=== PATIENT | female | born 2000 | race Caucasian/White ===

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

== ENCOUNTER 2020-12-28 11:33 | Emergency (ER) | payer BC, OTHER ==
[2020-12-28 13:30] VITALS: BP 131/74; PULSE 84
--- NOTE | 2020-12-28 13:38 | EDM.PDOC ---
ED HPI GENERAL MEDICAL PROBLEM - General Chief Complaint: Cardiovascular Problem Stated Complaint: HIGH BLOOD PRESSURE FEELING WEAK Time Seen by Provider: 12/28/20 13:37 Source of Information: Reports: Patient, RN, RN Notes Reviewed History Limitations: Reports: No Limitations - History of Present Illness INITIAL COMMENTS - FREE TEXT/NARRATIVE: Patient is a 20 y/o female who presents to the ED via personal vehicle with mother for complaints of dizziness and high blood pressure. The patient states she was feeling weak, dizzy, and shaky while at work this morning. She left w ork early at went home; she checked her blood pressure per her mother's request with a reading of 204/125 via home, wrist BP cuff at approximately 1130. Recheck with same BP machine was 180s SBP. The patient denies recent illness, fever, shaking chills, chest pain, palpitations, shortness of breath, nausea, vomiting, or diarrhea. She does note she has been on a new diet that is fairly low-carb and low-fat; she is unsure of her total caloric intake. The patient reports she experienced a similar episode of dizziness/shakiness during a new exercise routine yesterday. She reports she has experienced similar episodes in the past for which she followed with Dr. Devi; scans were clear and she was diagnosed with anxiety. She notes she does feel anxious at all times but her anxiety is currently at her baseline. She is currently taking Lexapro 10mg, Cymbalta 60mg daily and Trazodone 50mg and Atarax 25mg HS; these are not new medications for her. She denies tobacco or alcohol use; she does attest to weekly THC use. - Related Data Allergies Allergy/AdvReac Type Severity Reaction Status Date / Time amoxicillin [From Augmentin] Allergy Hives Verified 12/28/20 13:31 citalopram [From Celexa] Allergy Hallucinati Verified 12/28/20 13:31 ons clavulanic acid Allergy Hives Verified 12/28/20 13:31 [From Augmentin] sulfamethoxazole Allergy Hives Verified 12/28/20 13:31 [From Bactrim] trimethoprim [From Bactrim] Allergy Hives Verified 12/28/20 13:31 Home Meds: Home Meds Escitalopram [Lexapro] 1 tab PO DAILY 05/21/17 [History] DULoxetine [Cymbalta] 60 mg PO ASDIRECTED 12/28/20 [History] Liothyronine 50 mcg PO ASDIRECTED 12/28/20 [History] hydrOXYzine HCL [Atarax] 25 mg PO BID 12/28/20 [History] traZODone HCl [Trazodone HCl] 50 mg PO ASDIRECTED 12/28/20 [History] Past Medical History HEENT History: Reports: Otitis Media Respiratory History: Reports: Bronchitis, Recurrent Neurological History: Reports: Migraines Psychiatric History: Reports: Anxiety, Depression Social & Family History - Family History Family Medical History: No Pertinent Family History - Caffeine Use Caffeine Use: Reports: Coffee, Soda - Living Situation & Occupation Living situation: Reports: with Family Occupation: Student ED ROS GENERAL - Review of Systems Review Of Systems: Comprehensive ROS is negative, except as noted in HPI. ED EXAM, GENERAL - Physical Exam Exam: See Below Exam Limited By: No Limitations General Appearance: Alert, No Apparent Distress, Anxious Eye Exam: Bilateral Eye: EOMI, Normal Inspection, PERRL (3mm) Ears: Normal External Exam, Normal Canal, Hearing Grossly Normal, Normal TMs Ear Exam: Bilateral Ear: Auricle Normal, Canal Normal, TM normal Nose: Normal Inspection, Normal Mucosa, No Blood Throat/Mouth: Normal Inspection, Normal Voice, No Airway Compromise Head: Atraumatic, Normocephalic Neck: Normal Inspection, Supple, Non-Tender, Full Range of Motion Respiratory/Chest: No Respiratory Distress, Lungs Clear, Normal Breath Sounds, No Accessory Muscle Use, Chest Non-Tender Cardiovascular: Normal Peripheral Pulses, Regular Rate, Rhythm, No Edema, No Gallop, No JVD, No Murmur, No Rub Peripheral Pulses: 2+: Radial (L), Radial (R) GI/Abdominal: Normal Bowel Sounds, Soft, Non-Tender, No Organomegaly, No Distention, No Abnormal Bruit, No Mass, Pelvis Stable (Female) Exam: Deferred Rectal (Female) Exam: Deferred Back Exam: Normal Inspection, Full Range of Motion. No: CVA Tenderness (L), CVA Tenderness (R) Extremities: Normal Inspection, Normal Range of Motion, Non-Tender, Normal Capillary Refill, No Pedal Edema Neurological: Alert, Oriented, CN II-XII Intact, Normal Cognition, Normal Gait, Normal Reflexes, No Motor/Sensory Deficits Psychiatric: Anxious Skin Exam: Warm, Intact, Normal Color, No Rash, Diaphoretic, Mottled, Pallor, Petechiae. No: Ecchymosis, Erythema, Jaundice #1 Interpretation EKG Date: 12/28/20 Time: 13:12 Rhythm: NSR Rate (Beats/Min): 88 [place]: Normal P-Wave: Present QRS: Normal ST-T: Normal QT: Normal DC/PQ Interval: 0.13 Comparison: NA - No Prior EKG EKG Interpretation Comments: NSR; No evidence of acute myocardial ischemia Course - Vital Signs Last Recorded V/S: Last Vital Signs Temp 98.7 F 12/28/20 12:58 Pulse 84 12/28/20 12:58 Resp 14 12/28/20 12:58 BP 131/74 12/28/20 12:58 Pulse Ox - Orders/Labs/Meds Labs: Laboratory Tests 12/28/20 12/28/20 12/28/20 Range/Units 13:07 13:27 13:27 WBC 6.4 (5.0-10.0) 10^3/uL RBC 4.86 (4.2-5.4) 10^6/uL Hgb 14.0 (12.0-16.0) g/dL Hct 40.1 (37.0-47.0) % MCV 82.5 (80-100) fL MCH 28.8 (27.0-34.0) pg MCHC 34.9 (33.0-35.0) g/dL Plt Count 205 (150-450) 10^3/uL Neut % (Auto) 52.4 (42.2-75.2) % Lymph % (Auto) 39.7 (20.5-50.1) % [place] % (Auto) 6.6 (2-8) % Eos % (Auto) 1.1 (1.0-3.0) % Baso % (Auto) 0.2 (0.0-1.0) % Sodium 139 (136-145) mmol/L Potassium 3.4 L (3.5-5.1) mmol/L Chloride 102 (98-107) mmol/L Carbon Dioxide 22 (21-32) mmol/L Anion Gap 18.4 H (7-13) mEq/L BUN 14 (7-18) mg/dL Creatinine 0.81 (0.55-1.02) mg/dL Est Cr Clr Drug Dosing 94.87 mL/min Estimated GFR (MDRD) > 60 BUN/Creatinine Ratio 17.3 (No establ ref range) Glucose 72 (70-99) mg/dL POC Glucose 64 L (70-99) mg/dL Lactic Acid (0.4-2.0) mmol/L Calcium 8.9 (8.5-10.1) mg/dL Magnesium 2.2 (1.8-2.4) mg/dL Total Bilirubin 0.6 (0.2-1.0) mg/dL AST 24 (15-37) U/L ALT 44 (14-59) U/L Alkaline Phosphatase 62 (46-116) U/L Troponin I < 0.017 (0.000-0.056) ng/mL C-Reactive Protein 0.3 (0.0-0.9) mg/dL Total Protein 7.5 (6.4-8.2) g/dL Albumin 4.1 (3.4-5.0) g/dL Globulin 3.4 Albumin/Globulin Ratio 1.2 HCG, Qual Negative Urine Color (YELLOW) Urine Appearance (CLEAR) Urine pH (5.0-9.0) Ur Specific [place] (1.005-1.030) Urine Protein (NEGATIVE) Urine Glucose (UA) (NEGATIVE) Urine Ketones (NEGATIVE) Urine Occult Blood (NEGATIVE) Urine Nitrite (NEGATIVE) Urine Bilirubin (NEGATIVE) Urine Urobilinogen (0.2-1.0) mg/dL Ur Leukocyte Esterase (NEGATIVE) Urine RBC /HPF Urine WBC (0-5/HPF) /HPF Ur Epithelial Cells (NOT SEEN) /HPF Urine Bacteria (0-FEW/HPF) /HPF Urine Opiates Screen (NEGATIVE) Ur Oxycodone Screen (NEGATIVE) Urine Methadone Screen (NEGATIVE) Ur Barbiturates Screen (NEGATIVE) U Tricyclic Antidepress (NEGATIVE) Ur Phencyclidine Scrn (NEGATIVE) Ur Amphetamine Screen (NEGATIVE) U Methamphetamines Scrn (NEGATIVE) Urine MDMA Screen (NEGATIVE) U Benzodiazepines Scrn (NEGATIVE) Urine Cocaine Screen (NEGATIVE) U Marijuana (THC) Screen (NEGATIVE) Ethyl Alcohol 3 (0) mg/dL 12/28/20 12/28/20 12/28/20 Range/Units 13:27 13:57 13:57 WBC (5.0-10.0) 10^3/uL RBC (4.2-5.4) 10^6/uL Hgb (12.0-16.0) g/dL Hct (37.0-47.0) % MCV (80-100) fL MCH (27.0-34.0) pg MCHC (33.0-35.0) g/dL Plt Count (150-450) 10^3/uL Neut % (Auto) (42.2-75.2) % Lymph % (Auto) (20.5-50.1) % [place] % (Auto) (2-8) % Eos % (Auto) (1.0-3.0) % Baso % (Auto) (0.0-1.0) % Sodium (136-145) mmol/L Potassium (3.5-5.1) mmol/L Chloride (98-107) mmol/L Carbon Dioxide (21-32) mmol/L Anion Gap (7-13) mEq/L BUN (7-18) mg/dL Creatinine (0.55-1.02) mg/dL Est Cr Clr Drug Dosing mL/min Estimated GFR (MDRD) BUN/Creatinine Ratio (No establ ref range) Glucose (70-99) mg/dL POC Glucose (70-99) mg/dL Lactic Acid 1.2 (0.4-2.0) mmol/L Calcium (8.5-10.1) mg/dL Magnesium (1.8-2.4) mg/dL Total Bilirubin (0.2-1.0) mg/dL AST (15-37) U/L ALT (14-59) U/L Alkaline Phosphatase (46-116) U/L Troponin I (0.000-0.056) ng/mL C-Reactive Protein (0.0-0.9) mg/dL Total Protein (6.4-8.2) g/dL Albumin (3.4-5.0) g/dL Globulin Albumin/Globulin Ratio HCG, Qual Urine Color Yellow (YELLOW) Urine Appearance Clear (CLEAR) Urine pH 5.5 (5.0-9.0) Ur Specific [place] 1.015 (1.005-1.030) Urine Protein Trace H (NEGATIVE) Urine Glucose (UA) Negative (NEGATIVE) Urine Ketones 40 H (NEGATIVE) Urine Occult Blood Moderate H (NEGATIVE) Urine Nitrite Negative (NEGATIVE) Urine Bilirubin Negative (NEGATIVE) Urine Urobilinogen 0.2 (0.2-1.0) mg/dL Ur Leukocyte Esterase Negative (NEGATIVE) Urine RBC 0-5 /HPF Urine WBC 0-5 (0-5/HPF) /HPF Ur Epithelial Cells Rare (NOT SEEN) /HPF Urine Bacteria Few (0-FEW/HPF) /HPF Urine Opiates Screen Negative (NEGATIVE) Ur Oxycodone Screen Negative (NEGATIVE) Urine Methadone Screen Negative (NEGATIVE) Ur Barbiturates Screen Negative (NEGATIVE) U Tricyclic Antidepress Negative (NEGATIVE) Ur Phencyclidine Scrn Negative (NEGATIVE) Ur Amphetamine Screen Negative (NEGATIVE) U Methamphetamines Scrn Negative (NEGATIVE) Urine MDMA Screen Negative (NEGATIVE) U Benzodiazepines Scrn Negative (NEGATIVE) Urine Cocaine Screen Negative (NEGATIVE) U Marijuana (THC) Screen Positive H (NEGATIVE) Ethyl Alcohol (0) mg/dL 12/28/20 Range/Units 14:26 WBC (5.0-10.0) 10^3/uL RBC (4.2-5.4) 10^6/uL Hgb (12.0-16.0) g/dL Hct (37.0-47.0) % MCV (80-100) fL MCH (27.0-34.0) pg MCHC (33.0-35.0) g/dL Plt Count (150-450) 10^3/uL Neut % (Auto) (42.2-75.2) % Lymph % (Auto) (20.5-50.1) % [place] % (Auto) (2-8) % Eos % (Auto) (1.0-3.0) % Baso % (Auto) (0.0-1.0) % Sodium (136-145) mmol/L Potassium (3.5-5.1) mmol/L Chloride (98-107) mmol/L Carbon Dioxide (21-32) mmol/L Anion Gap (7-13) mEq/L BUN (7-18) mg/dL Creatinine (0.55-1.02) mg/dL Est Cr Clr Drug Dosing mL/min Estimated GFR (MDRD) BUN/Creatinine Ratio (No establ ref range) Glucose (70-99) mg/dL POC Glucose 140 H (70-99) mg/dL Lactic Acid (0.4-2.0) mmol/L Calcium (8.5-10.1) mg/dL Magnesium (1.8-2.4) mg/dL Total Bilirubin (0.2-1.0) mg/dL AST (15-37) U/L ALT (14-59) U/L Alkaline Phosphatase (46-116) U/L Troponin I (0.000-0.056) ng/mL C-Reactive Protein (0.0-0.9) mg/dL Total Protein (6.4-8.2) g/dL Albumin (3.4-5.0) g/dL Globulin Albumin/Globulin Ratio HCG, Qual Urine Color (YELLOW) Urine Appearance (CLEAR) Urine pH (5.0-9.0) Ur Specific [place] (1.005-1.030) Urine Protein (NEGATIVE) Urine Glucose (UA) (NEGATIVE) Urine Ketones (NEGATIVE) Urine Occult Blood (NEGATIVE) Urine Nitrite (NEGATIVE) Urine Bilirubin (NEGATIVE) Urine Urobilinogen (0.2-1.0) mg/dL Ur Leukocyte Esterase (NEGATIVE) Urine RBC /HPF Urine WBC (0-5/HPF) /HPF Ur Epithelial Cells (NOT SEEN) /HPF Urine Bacteria (0-FEW/HPF) /HPF Urine Opiates Screen (NEGATIVE) Ur Oxycodone Screen (NEGATIVE) Urine Methadone Screen (NEGATIVE) Ur Barbiturates Screen (NEGATIVE) U Tricyclic Antidepress (NEGATIVE) Ur Phencyclidine Scrn (NEGATIVE) Ur Amphetamine Screen (NEGATIVE) U Methamphetamines Scrn (NEGATIVE) Urine MDMA Screen (NEGATIVE) U Benzodiazepines Scrn (NEGATIVE) Urine Cocaine Screen (NEGATIVE) U Marijuana (THC) Screen (NEGATIVE) Ethyl Alcohol (0) mg/dL - Re-Assessments/Exams Free Text/Narrative Re-Assessment/Exam: 12/28/20 Blood pressure 130s/70 upon triage. Blood sugar noted to be only 64. The patient states she had a shake and protein bar this morning for breakfast, per her diet; she has not had lunch. Soup and sandwich provided for patient. Patient verbalized resolution of dizziness/tremor following meal. She does still attest to anxiety, but notes it is not greater than her baseline. Blood pressures remain between 120-140, systolic. Recheck of blood sugar 140. Mother expressed concern regarding her blood sugar being too high following a meal; wr iter discussed proper post-prandial blood sugar as well as the importance of a balanced diet with appropriate caloric intake, especially in the presence of strenuous exercise. CMP and CBC fairly normal; slight hypokalemia noted. Findings of examination and blood work reviewed with patient and mother. Patient instructed to follow up in clinic tomorrow for blood pressure recheck as well as to schedule appointment with PCP by the end of the week for follow up. Patient verbalized understanding and agreement with the plan of care. Departure - Departure Time of Disposition: 14:35 Disposition: Home, Self-Care 01 Condition: Good Clinical Impression: Hypoglycemia, Pre-syncope, Transient hypertension Instructions: Hypoglycemia, [id number] Referrals: Esperanza Salcido NP [Primary Care Provider] - Forms: ED Department Discharge Additional Instructions: 1.) Blood pressure recheck tomorrow morning; present to the clinic. 2.) Follow up with primary care provider regarding today's visit, including hypoglycemia and hypertension. 3.) Drink plenty of water to stay hydrated. 4.) Eat a balanced diet, ensuring that you are consuming at least 1800 calories and fat/carbohydrates. Sepsis Event Note (ED) - Evaluation Sepsis Screening Result: No Definite Risk
[2020-12-28 13:56] LABS: ANION GAP 18.4 mEq/L (7-13); CHLORIDE,CL 102 mmol/L (98-107); SODIUM,NA 139 mmol/L (136-145)
== END 2020-12-28 14:43 | disposition home or self-care (01) ==
LOC: DL.ED 11:33
DX: E16.2 Hypoglycemia, unspecified (principal); R03.0 Elevated blood-pressure reading, without diagnosis of hypertension; Z88.0 Allergy status to penicillin; Z79.899 Other long term (current) drug therapy; Z88.8 Allergy status to other drugs, medicaments and biological substances; Z88.1 Allergy status to other antibiotic agents; Z88.2 Allergy status to sulfonamides
CPT/HCPCS: 36415; 80053; 80305-QW; 80307; 81001; 82947; 83605; 83735; 84484; 84703; 85025; 86140; 93005; 93010; 99284; 99284-25

== ENCOUNTER 2021-12-12 18:48 | Emergency (ER) | payer BC, OTHER ==
[2021-12-12] MEDS ORDERED: Ondansetron 4 MG Tab.DIS PO ONE (18:49)
[2021-12-12] MEDS ORDERED: Ondansetron 4 MG/2 ML SDV IVPUSH ONE (19:40)
[2021-12-12] MEDS ORDERED: Sodium Chloride 0.9% 1,000 ML IV ONE ×2 (19:40→20:51)
[2021-12-12 20:11] VITALS: BP 133/94; PULSE 86
[2021-12-12 20:21] LABS: ANION GAP 16.3 mEq/L (7-13); CHLORIDE,CL 105 mmol/L (98-107); SODIUM,NA 141 mmol/L (136-145)
[2021-12-12 20:40] LABS: CORONAVIRUS COVID-19 NAA NEGATIVE (NEGATIVE)
[2021-12-12] MEDS ORDERED: Potassium Chloride 10 MEQ in Premix Bag 1 BAG IV ONE (20:56)
[2021-12-12] MEDS ORDERED: Ondansetron 4 MG Tab.DIS ONE (22:06)
== END 2021-12-12 22:15 | disposition home or self-care (01) ==
LOC: DL.ED 18:48
DX: K52.9 Noninfective gastroenteritis and colitis, unspecified (principal); K21.9 Gastro-esophageal reflux disease without esophagitis; Z79.899 Other long term (current) drug therapy; Z20.822 Contact with and (suspected) exposure to COVID-19; Z88.8 Allergy status to other drugs, medicaments and biological substances; Z88.0 Allergy status to penicillin; Z88.2 Allergy status to sulfonamides
CPT/HCPCS: 0240U; 36415; 80053; 82150; 83605; 83690; 84703; 85025; 96365; 96375; 99284; A9270; J2405; J3480; J7030

== ENCOUNTER 2023-02-21 20:31 | Emergency (ER) | payer BC, OTHER ==
[2023-02-21] MEDS ORDERED: Sodium Chloride 0.9% 10 ML Syringe FLUSH PRN (20:38)
[2023-02-21 20:49] VITALS: BP 121/76; PULSE 114
[2023-02-21 20:52] LABS: BASOPHILS PERCENT AUTO 0.1 % (0.0-1.0); EOSINOPHILS PERCENT AUTO 0.2 % (1.0-3.0); HEMATOCRIT 38.6 % (37.0-47.0); HEMOGLOBIN 13.3 g/dL (12.0-16.0); LYMPHOCYTES PERCENT AUTO 14.6 % (20.5-50.1); MEAN CORPUSCULAR HEMOGLOBIN 29.6 pg (27.0-34.0); MEAN CORPUSCULAR HGB CONC 34.5 g/dL (33.0-35.0); MEAN CORPUSCULAR VOLUME 85.8 fL (80-100); NEUTROPHILS PERCENT AUTO 82.1 % (42.2-75.2); PLATELET COUNT,PLT 191 10^3/uL (150-450); WHITE BLOOD CELL COUNT,WBC 9.3 10^3/uL (5.0-10.0)
[2023-02-21] MEDS: Sodium Chloride 0.9% 1,000 ML IV ONE (21:01)
[2023-02-21 21:08] LABS: A/G RATIO 1.2; ALANINE AMINOTRANSFERASE,ALT 22 U/L (14-59); ALBUMIN 4.2 g/dL (3.4-5.0); ALKALINE PHOSPHATASE 58 U/L (46-116); ANION GAP 17.7 mEq/L (7-13); ASPARTATE AMNIOTRANSFERASE,AST 25 U/L (15-37); BILIRUBIN TOTAL 0.5 mg/dL (0.2-1.0); BLOOD UREA NITROGEN,BUN 11 mg/dL (7-18); BUN/CREATININE RATIO 11.3 (No establ ref range); CARBON DIOXIDE,CO2 21 mmol/L (21-32); CHLORIDE,CL 102 mmol/L (98-107); CREATININE 0.97 mg/dL (0.55-1.02); EST CRCL DRUG DOSING (CG) 77.89 mL/min; GLUCOSE RANDOM 104 mg/dL (70-99); POTASSIUM,K 3.7 mmol/L (3.5-5.1); PROTEIN TOTAL,TP 7.8 g/dL (6.4-8.2); SODIUM,NA 137 mmol/L (136-145)
[2023-02-21 21:09] LABS: C-REACTIVE PROTEIN < 0.2 mg/dL (0.0-0.9); ESTIMATED GFR 84 mL/min (>=60); ETHANOL BLOOD MEDICAL < 3 mg/dL (0)
[2023-02-21 21:15] LABS: LACTIC ACID 4.8 mmol/L (0.4-2.0)
[2023-02-21 21:51] LABS: APPEARANCE,URINE CLEAR (CLEAR); BILIRUBIN,URINE NEGATIVE (NEGATIVE); COLOR,URINE YELLOW (YELLOW); GLUCOSE,URINE NEGATIVE (NEGATIVE); KETONES,URINE TRACE (NEGATIVE); LEUKOCYTE ESTERASE,URINE NEGATIVE (NEGATIVE); NITRITE,URINE NEGATIVE (NEGATIVE); OCCULT BLOOD,URINE TRACE-INTACT (NEGATIVE); PH,URINE 5.5 (5.0-9.0); PROTEIN,URINE 100 (NEGATIVE); UROBILINOGEN,URINE 0.2 mg/dL (0.2-1.0)
[2023-02-21 21:55] LABS: AMPHETAMINES,URINE NEGATIVE (NEGATIVE); BARBITURATES,URINE NEGATIVE (NEGATIVE); BENZODIAZEPINE,URINE NEGATIVE (NEGATIVE); MDMA (ECSTASY), URINE NEGATIVE (NEGATIVE); METHADONE,URINE NEGATIVE (NEGATIVE); METHAMPHETAMINES,URINE NEGATIVE (NEGATIVE); OPIATES,URINE NEGATIVE (NEGATIVE); OXYCODONE,URINE NEGATIVE (NEGATIVE); PHENCYCLIDINE,URINE NEGATIVE (NEGATIVE); TCA,URINE NEGATIVE (NEGATIVE)
[2023-02-21] MEDS: levETIRAcetam in NaCl (iso-os) 1,500 MG in Premix Bag 1 BAG IV ONE ×2 (21:58)
[2023-02-21 22:01] LABS: BACTERIA,URINE FEW /HPF (0-FEW/HPF); EPITHELIAL CELLS,URINE FEW /HPF (NOT SEEN); MUCUS,URINE MODERATE /LPF (NOT SEEN)
== END 2023-02-21 22:30 | disposition home or self-care (01) ==
LOC: DL.ED 20:31
DX: R56.9 Unspecified convulsions (principal); S00.532A Contusion of oral cavity, initial encounter; S00.83XA Contusion of other part of head, initial encounter; Z88.0 Allergy status to penicillin; Z88.1 Allergy status to other antibiotic agents
CPT/HCPCS: 36415; 70450; 80053; 80305; 80307; 81001; 81025; 83605; 83735; 85025; 86140; 96365; 99285; J1953; J7030

== ENCOUNTER 2023-03-03 02:35 | Emergency (ER) | payer OTHER ==
[2023-03-03] MEDS ORDERED: Sodium Chloride 0.9% 10 ML Syringe FLUSH PRN (03:05)
[2023-03-03 03:14] VITALS: BP 156/78; PULSE 102
[2023-03-03] MEDS ORDERED: levETIRAcetam in NaCl (iso-os) 1,000 MG in Premix Bag 1 BAG IV ONE ×2 (03:14)
[2023-03-03 03:16] LABS: BASOPHILS PERCENT AUTO 0.2 % (0.0-1.0); EOSINOPHILS PERCENT AUTO 0.7 % (1.0-3.0); HEMATOCRIT 39.5 % (37.0-47.0); HEMOGLOBIN 13.8 g/dL (12.0-16.0); LYMPHOCYTES PERCENT AUTO 34.4 % (20.5-50.1); MEAN CORPUSCULAR HEMOGLOBIN 29.9 pg (27.0-34.0); MEAN CORPUSCULAR HGB CONC 34.9 g/dL (33.0-35.0); MEAN CORPUSCULAR VOLUME 85.5 fL (80-100); MONOCYTES PERCENT AUTO 9.9 % (2-8); NEUTROPHILS PERCENT AUTO 54.8 % (42.2-75.2); PLATELET COUNT,PLT 339 10^3/uL (150-450); RED BLOOD CELL COUNT 4.62 10^6/uL (4.2-5.4)
[2023-03-03 04:05] LABS: A/G RATIO 1.2; ALBUMIN 4.1 g/dL (3.4-5.0); ANION GAP 15.8 mEq/L (7-13); BILIRUBIN TOTAL 0.6 mg/dL (0.2-1.0); BUN/CREATININE RATIO 10.8 (No establ ref range); CALCIUM 9.3 mg/dL (8.5-10.1); CREATININE 1.02 mg/dL (0.55-1.02); EST CRCL DRUG DOSING (CG) 73.44 mL/min; POTASSIUM,K 3.8 mmol/L (3.5-5.1); PROTEIN TOTAL,TP 7.5 g/dL (6.4-8.2)
== END 2023-03-03 05:34 | disposition home or self-care (01) ==
LOC: DL.ED 02:35
DX: R56.9 Unspecified convulsions (principal); Z88.0 Allergy status to penicillin; Z88.8 Allergy status to other drugs, medicaments and biological substances; Z88.1 Allergy status to other antibiotic agents; Z88.2 Allergy status to sulfonamides; Z79.899 Other long term (current) drug therapy
CPT/HCPCS: 36415; 70450; 80053; 82947; 85025; 93005; 96365; 99285; J1953; J3490

== ENCOUNTER 2023-05-21 12:30 | Emergency (ER) | payer OTHER ==
[2023-05-21] MEDS ORDERED: Sodium Chloride 0.9% 10 ML Syringe FLUSH PRN (12:37)
[2023-05-21] MEDS ORDERED: levETIRAcetam in NaCl (iso-os) 1,500 MG in Premix Bag 1 BAG IV ONE ×2 (12:45)
[2023-05-21] MEDS ORDERED: Sodium Chloride 0.9% 1,000 ML IV ONE (12:46)
[2023-05-21 12:47] VITALS: BP 131/73; PULSE 103
[2023-05-21 12:57] LABS: BASOPHILS PERCENT AUTO 0.3 % (0.0-1.0); EOSINOPHILS PERCENT AUTO 0.2 % (1.0-3.0); HEMATOCRIT 38.7 % (37.0-47.0); HEMOGLOBIN 13.5 g/dL (12.0-16.0); MEAN CORPUSCULAR HEMOGLOBIN 29.6 pg (27.0-34.0); MEAN CORPUSCULAR HGB CONC 34.9 g/dL (33.0-35.0); MEAN CORPUSCULAR VOLUME 84.9 fL (80-100); MONOCYTES PERCENT AUTO 3.5 % (2-8); PLATELET COUNT,PLT 200 10^3/uL (150-450); RED BLOOD CELL COUNT 4.56 10^6/uL (4.2-5.4); WHITE BLOOD CELL COUNT,WBC 9.4 10^3/uL (5.0-10.0)
[2023-05-21] MEDS ORDERED: Ondansetron 4 MG/2 ML SDV IVPUSH ONE (13:06)
[2023-05-21 13:14] LABS: PROTHROMBIN TIME 9.9 SEC (9.0-12.0); PTT,PARTIAL THROMBOPLSTIN TIME 21.1 SEC (22.0-34.0)
[2023-05-21 13:17] LABS: A/G RATIO 1.1; ALANINE AMINOTRANSFERASE,ALT 20 U/L (14-59); ALBUMIN 3.9 g/dL (3.4-5.0); ALKALINE PHOSPHATASE 61 U/L (46-116); ANION GAP 18.7 mEq/L (7-13); ASPARTATE AMNIOTRANSFERASE,AST 20 U/L (15-37); BILIRUBIN TOTAL 0.4 mg/dL (0.2-1.0); BLOOD UREA NITROGEN,BUN 9 mg/dL (7-18); BUN/CREATININE RATIO 10.2 (No establ ref range); C-REACTIVE PROTEIN 0.31 ng/dL (<=0.30); CALCIUM 8.8 mg/dL (8.5-10.1); CARBON DIOXIDE,CO2 20 mmol/L (21-32); CHLORIDE,CL 103 mmol/L (98-107); CREATININE 0.88 mg/dL (0.55-1.02); EST CRCL DRUG DOSING (CG) 85.12 mL/min; GLUCOSE RANDOM 142 mg/dL (70-99); MAGNESIUM 1.9 mg/dL (1.8-2.4); POTASSIUM,K 3.7 mmol/L (3.5-5.1); PROTEIN TOTAL,TP 7.5 g/dL (6.4-8.2); SODIUM,NA 138 mmol/L (136-145)
[2023-05-21 13:18] LABS: ESTIMATED GFR 94 mL/min (>=60)
[2023-05-21 13:19] LABS: ETHANOL BLOOD MEDICAL < 3 mg/dL (0)
[2023-05-21] MEDS ORDERED: Acetaminophen 500 MG Tab PO ONE (13:19)
[2023-05-21 13:20] LABS: LACTIC ACID 2.8 mmol/L (0.4-2.0)
[2023-05-21 13:22] LABS: APPEARANCE,URINE CLEAR (CLEAR); BILIRUBIN,URINE NEGATIVE (NEGATIVE); COLOR,URINE YELLOW (YELLOW); GLUCOSE,URINE NEGATIVE (NEGATIVE); KETONES,URINE NEGATIVE (NEGATIVE); LEUKOCYTE ESTERASE,URINE NEGATIVE (NEGATIVE); NITRITE,URINE NEGATIVE (NEGATIVE); OCCULT BLOOD,URINE TRACE-INTACT (NEGATIVE); PH,URINE 5.5 (5.0-9.0); PROTEIN,URINE 100 (NEGATIVE); UROBILINOGEN,URINE 0.2 mg/dL (0.2-1.0)
[2023-05-21 13:37] LABS: AMORPHOUS SEDIMENT,URINE MODERATE /HPF (NOT SEEN); AMPHETAMINES,URINE NEGATIVE (NEGATIVE); BACTERIA,URINE MODERATE /HPF (0-FEW/HPF); BARBITURATES,URINE NEGATIVE (NEGATIVE); BENZODIAZEPINE,URINE NEGATIVE (NEGATIVE); EPITHELIAL CELLS,URINE MANY /HPF (NOT SEEN); MDMA (ECSTASY), URINE NEGATIVE (NEGATIVE); METHADONE,URINE NEGATIVE (NEGATIVE); METHAMPHETAMINES,URINE NEGATIVE (NEGATIVE); MUCUS,URINE MODERATE /LPF (NOT SEEN); OPIATES,URINE NEGATIVE (NEGATIVE); OXYCODONE,URINE NEGATIVE (NEGATIVE); PHENCYCLIDINE,URINE NEGATIVE (NEGATIVE); RBC,URINE 0-5 /HPF (0-5); TCA,URINE NEGATIVE (NEGATIVE)
[2023-05-21] MEDS ORDERED: Ketorolac 30 MG/ML SDV IVPUSH ONE (14:18)
== END 2023-05-21 15:17 | disposition home or self-care (01) ==
LOC: DL.ED 12:30
DX: R56.9 Unspecified convulsions (principal); E66.9 Obesity, unspecified; Z79.899 Other long term (current) drug therapy; Z88.1 Allergy status to other antibiotic agents; Z88.2 Allergy status to sulfonamides; Z88.8 Allergy status to other drugs, medicaments and biological substances; Z20.822 Contact with and (suspected) exposure to COVID-19; Z68.35 Body mass index [BMI] 35.0-35.9, adult
CPT/HCPCS: 36415; 80053; 80305-QW; 80307; 81001; 81025; 82947; 83605; 83735; 84145; 84484; 85025; 85610; 85730; 86140; 87804; 93005; 96365; 96375; 99284-25; A9270-GY; J1885; J1953; J2405; J3490; J7030; U0002

== ENCOUNTER 2024-07-10 07:28 | Day surgery (SDC) | payer OTHER ==
[2024-07-10] MEDS ORDERED: Midazolam 1 MG/ML 2 ML SDV IV ONE (07:29)
[2024-07-10] MEDS ORDERED: fentaNYL 100 MCG/2 ML SDV IV ONE (07:29)
[2024-07-10] MEDS ORDERED: Midazolam 1 MG/ML 2 ML SDV ONE (07:35)
[2024-07-10] MEDS ORDERED: fentaNYL 100 MCG/2 ML SDV ONE (07:36)
[2024-07-10] MEDS: Dextrose 5%-0.45% NaCl 1,000 ML IV SCH (08:01)
[2024-07-10] MEDS: fentaNYL 100 MCG/2 ML SDV IV ONE ×2 (08:09→08:10)
[2024-07-10] MEDS: Midazolam 1 MG/ML 2 ML SDV IV ONE ×2 (08:10)
[2024-07-10 09:28] VITALS: BP 110/67; PULSE 78
== END 2024-07-10 09:26 | disposition home or self-care (01) ==
LOC: DL.ENDO 07:28
PROVIDERS: ATTEND Internal Medicine Gastroenterology
DX: K31.819 Angiodysplasia of stomach and duodenum without bleeding (principal); F41.1 Generalized anxiety disorder; F32.A Depression, unspecified; Z79.899 Other long term (current) drug therapy; Z88.2 Allergy status to sulfonamides; Z88.0 Allergy status to penicillin
CPT/HCPCS: 43239; 81025; J2250; J3010; J7799